=== PATIENT | female | born 1995 | race Caucasian/White ===

== ENCOUNTER 2019-11-29 12:29 | Emergency (ER) | payer BC ==
--- NOTE | 2019-11-29 13:36 | ER Document Report ---
ED Medical Screen (RME) - General Chief Complaint: Syncope Stated Complaint: POSSIBLE SYNCOPE Time Seen by Provider: 11/29/19 13:28 Mode of Arrival: Wheelchair Information source: Patient, Relative Notes: Patient states that she accidentally cut her right thumb with dayday. Patient states that the bleed went underneath her fingernail. Patient states that afterwards she passed out. Patient had a witnessed syncopal episode and was noted to have a shaking worrisome for seizure-like activity. Patient states she did feel lightheaded after the incident but states the lightheadedness has now started to resolve. Patient without any chest pain. Patient states she does have a history of syncopal episodes in the past. Patient denies any history of seizures. I have greeted and performed a rapid initial assessment of this patient. A comprehensive ED assessment and evaluation of the patient, analysis of test results and completion of the medical decision making process will be conducted by additional ED providers. TRAVEL OUTSIDE OF THE [place] IN LAST 30 DAYS: No - Related Data Allergies/Adverse Reactions: No Known Allergies Allergy (Unverified 11/29/19 13:26) Past Medical History - Social History Chew tobacco use (# tins/day): No Frequency of alcohol use: None Drug Abuse: None Physical Exam - General General appearance: Appears well, Alert Notes: No obvious injury to right thumb - Cardiovascular Rhythm: Regular Heart sounds: S1 appreciated, S2 appreciated
[2019-11-29 13:38] VITALS: BP 115/75
--- NOTE | 2019-11-30 01:01 | EKG REPORT ---
SEVERITY:- NORMAL ECG - SINUS RHYTHM : Confirmed by: Trina Dias MD 30-Nov-2019 00:59:44
== END 2019-11-29 14:19 | disposition left against medical advice (07) ==
LOC: ER 12:29
DX: R55 Syncope and collapse (principal); S61.011A Laceration without foreign body of right thumb without damage to nail, initial encounter; W27.8XXA Contact with other nonpowered hand tool, initial encounter
CPT/HCPCS: 93005; 93010; 99281